=== PATIENT | female | born 1990 | race African-American/Black ===

== ENCOUNTER 2019-08-06 07:23 | Emergency (ER) | payer OTHER, SELFPAY ==
[2019-08-06] MEDS ORDERED: Ondansetron ODT 4 MG TAB ONE (07:50)
[2019-08-06 08:01] LABS: #Basophils 0.1 thou/uL (0.0-0.2); #Lymphocytes 1.9 thou/uL (1.20-3.40); #Monocytes 0.6 thou/uL (0.11-0.59); #Neutrophils 4.3 thou/uL (1.40-6.50); %Eosinophils 0.2 % (0.0-10.0); %Lymphocytes 27.6 % (21.0-51.0); %Monocytes 9.3 % (0.0-10.0); %Neutrophils 61.9 % (42.0-75.0); Hemoglobin 13.9 g/dL (12.0-16.0); Mean Corpuscular HGB CONC 33.5 g/dL (32.0-36.0); Mean Corpuscular Hemoglobin 30.3 pg (27.0-31.0); Mean Corpuscular Volume 90.4 fL (78.0-98.0); Mean Platelet Volume 6.9 fL (7.4-10.4); Platelet Count 292 thou/uL (130-400); Red Blood Cell (RBC) Count 4.59 mill/uL (4.20-5.40); White Blood Cell (WBC) Count 6.9 thou/uL (4.8-10.8)
[2019-08-06 08:20] LABS: Bilirubin Negative (Negative); Blood, Urine Negative (Negative); Clarity Turbid (Clear); Glucose, Urine (Dipstick) Normal (Negative); Leukocyte 25 Leu/uL (Negative); Mucous/LPF 2+ LPF (<2+); Nitrite Negative (Negative); Protein, Urine (Dipstick) 70 mg/dL (Neg-Trace); Urobilinogen 3 mg/dL (Less than 2)
[2019-08-06 08:24] LABS: ALT (SGPT) 16 U/L (8-55); AST (SGOT) 18 U/L (5-34); Albumin 4.7 g/dL (3.5-5.0); Alkaline Phosphatase 38 U/L (40-150); Anion Gap 13 mmol/L (10-20); BUN (Urea Nitrogen) 9 mg/dL (7.0-18.7); Bilirubin, Total 0.5 mg/dL (0.2-1.2); Calc. Creatinine Clearance 0 mL/min (70-130); Calcium 10.2 mg/dL (7.8-10.44); Carbon Dioxide 23 mmol/L (22-29); Chloride 102 mmol/L (98-107); Estimated GFR-MDRD Greater than 90; Glucose 86 mg/dL (70-105); Potassium 3.6 mmol/L (3.5-5.1); Protein, Total 7.7 g/dL (6.0-8.3); Sodium 134 mmol/L (136-145)
[2019-08-06 08:34] LABS: Bacteria/HPF 3+ HPF (None Seen); RBC/HPF 0-3 HPF (0-3)
--- NOTE | 2019-08-06 09:38 | ULT ---
EXAM: US Pelvic W Doppler PROVIDED CLINICAL HISTORY: Pelvic pain COMPARISON: None FINDINGS: Single live intrauterine gestation is documented, with crown-rump length corresponding to 7 week 1 da y gestation. Heart rate of 149 bpm documented. Small amount of perigestational hemorrhage. The uterus appears otherwise unremarkable. The ovaries appear sonographically normal. Color Doppler and s pectral analysis of the ovarian waveforms and straits normal flow bilaterally. No significant free pelvic fluid evident. IMPRESSION: Single live intrauterine gestation as above.
== END 2019-08-06 10:17 | disposition home or self-care (01) ==
LOC: ERS 07:23
DX: O21.9 Vomiting of pregnancy, unspecified (principal); O99.89 Other specified diseases and conditions complicating pregnancy, childbirth and the puerperium; R82.71 Bacteriuria; Z3A.01 Less than 8 weeks gestation of pregnancy
CPT/HCPCS: 36415; 76856; 80053; 81003; 81015; 84702; 85025; 87077; 87086; 87186; 93976; Q0162

== ENCOUNTER 2019-11-07 09:35 | Outpatient (CLI) | payer OTHER ==
--- NOTE | 2019-11-07 11:21 | ULT ---
OB ULTRASOUND: HISTORY: anatomy. FINDINGS: A single live intrauterine gestation is seen with measurements corresponding to an estimated gestatio nal age of 20 weeks 0 days and an JORGE of 03/26/2020. The estimated weight measures 340 g or 12 oz (58th percentile by Hadlock criteria). measurements are as follows: BPD: 4.38 cm (19 weeks 2 days) HC: 17.27 cm (19 weeks 6 days) AC: 15.34 cm (20 weeks 4 days) FL: 3.22 cm (20 weeks 1 day) heart rate measures 153 beats per minute. VARGAS measures 9.26 cm. Placenta is posteriorly located without evidence of placenta previa. Cervical length measures 4.4 cm. Three vessel cord, cord insertion, kidneys, bladder, stomach, four chambered heart, lateral kely tricles, cerebellum, spine, and upper and lower extremities are visualized without definite ano malies. The lips/nose are not well seen. IMPRESSION: Single live intrauterine of 20 weeks 0 days estimated gestational age and an estimated date of delivery of 03/26/2020. POS: CHHAYA
== END 2019-11-07 09:36 | disposition home or self-care (01) ==
LOC: BICULT 09:35
PROVIDERS: ATTEND Family Medicine
DX: Z34.82 Encounter for supervision of other normal pregnancy, second trimester (principal); Z3A.20 20 weeks gestation of pregnancy
CPT/HCPCS: 76805

== ENCOUNTER 2020-03-16 09:43 | Inpatient (IN) | payer OTHER ==
[2020-03-16 10:26] VITALS: BMI 35.4
[2020-03-16] MEDS ORDERED: NS / Oxytocin 40 units/1000ml 1,000 ML IV PRN (10:32)
[2020-03-16] MEDS ORDERED: Ibuprofen 800 MG TAB PO PRN (10:32)
[2020-03-16] MEDS ORDERED: Acetaminophen 500 MG TAB PO PRN (10:32)
[2020-03-16] MEDS ORDERED: Lidocaine 1% (PF) 30 ML VIAL SC PRN (10:32)
[2020-03-16] MEDS ORDERED: Ondansetron PF 4 MG/2 ML Vial IVP PRN ×3 (10:32→20:12)
[2020-03-16] MEDS ORDERED: Butorphanol Tartrate 1 MG/ML VIAL SLOW IVP PRN (10:32)
[2020-03-16] MEDS ORDERED: hydrALAZINE 20 MG/ML VIAL SLOW IVP PRN ×2 (10:32→20:12)
[2020-03-16] MEDS ORDERED: Promethazine HCl 25 MG/ML VIAL IM PRN ×3 (10:32→20:12)
[2020-03-16] MEDS ORDERED: Penicillin G Potassium 5 MILL.UNITS in Sodium Chloride 0.9% 100 ML IVPB SCH (10:45)
--- NOTE | 2020-03-16 10:54 | PDOC.FPROB ---
FMR OB H&P: HPI - History of Present Illness Chief Complaint: Contractions Indentification: 29 year old at 38.4 wks History of Present Illness: 29 year old at 38.4 wks presents with q5 minute contractions since 5:00 AM. She states they started to get stronger at approximately 9:30 AM. Patient denies any complications in this . She is GBS positive. Patient was checked in clinic last week and was 3 cm dilated. Patient denies vaginal bleeding, vaginal discharge, LoF. Endorses good movement. Primary Care Physician: Dr. Patel FMR OB H&P: Current - Care : 3 Para: 2001 Gestational age: 38.4 wks Due date: 03/26/2020 FMR OB H&P: History - Past Medical History PMH: Denies - OB History OB History: 3 's - HEMODIALYSIS TECHNICIAN History HEMODIALYSIS TECHNICIAN History: Denies history of STD's - Surgical History Sx History: Denies - Social History Social History: Denies alcohol, tobacco, or drug use FMR OB H&P: Medications - Current Home Medications: Medication Instructions Recorded Confirmed Type Iron Carb,Gl/FA/B12/C/Docusate 1 tablet PO DAILY 03/16/20 03/16/20 History [Ferralet 90] Vitamin 1 tablet PO DAILY 03/16/20 03/16/20 History Allergies/Adverse Reactions: Allergies Allergy/AdvReac Type Severity Reaction Status Date / Time No Known Allergies Allergy Unverified 03/16/20 10:18 FMR OB H&P: ROS - Review of Systems General: denies: fever/chills, weight/appetite/sleep changes Eyes: denies: vision changes, scotomas ENT: denies: nasal congestion, rhinorrhea, sore throat Cardiovascular: denies: chest pain, palpitation, edema Respiratory: denies: cough, congestion, shortness of breath Gastrointestinal: denies: abdominal pain, nausea, vomiting, diarrhea Genitourinary (Female): reports: contractions, vaginal pressure. denies: dysuria, vaginal pain, vaginal bleeding Musculoskeletal: denies: pain, stiffness, tenderness Neurologic: denies: numbness, syncope, weakness Integumentary: denies: itching, rash Hematologic/Lymphatic: denies: prolonged or excessive bleeding Psychological: denies: depression, anxiety FMR OB H&P: Vital Signs - Maternal Vital signs: BP 133/79 Pulse 93 Afebrile - Heart Tones Baseline: 140 Variability: moderate Acceleration: present Deceleration: absent Category: category 1 [place] contractions every: q3-6 min FMR OB H&P: Physical Exam - Physical Exam General: NAD, awake, alert and oriented HEENT: grossly normal vision, grossly normal hearing Heart: RRR, pulses present General: no respiratory distress Abdomen: soft, gravid, non-tender Musculoskeletal: pulses present, FROM in all four extremities Neurological: no tremor, no focal deficit Skin: no rash, capillary refill <2 seconds Lymphatic: no unusual bruising or bleeding Psychiatric: intact recent and remote memory, good judgement and insight, normal mood and affect - Pelvic Exam SVE: 5/ Presentation: Cephalic FMR OB H&P: A/P - Problem List (1) Term Current Visit: Yes Status: Acute Code(s): Z34.90 - ENCNTR FOR SUPRVSN OF NORMAL , UNSP, UNSP TRIMESTER Disposition: 29 year old at 38.4 wks Term - In labor - SVE: /-3 - GBS positive, initiating GBS ppx with Penicillin - Cat I strip Dispo: Admit to L&D for expectant management. Discussion: Date/Time: 03/16/20 1039 This H&P was discussed with Dr. Patel who agrees with the above documentation and plan. Signature: Fabienne Mac, DO PGY-3
[2020-03-16] MEDS: Lactated Ringer's 1,000 ML IV SCH ×2 (11:07→13:21)
[2020-03-16 11:17] LABS: Hemoglobin 12.5 g/dL (12.0-16.0); Mean Corpuscular HGB CONC 34.3 g/dL (32.0-36.0); Mean Corpuscular Hemoglobin 32.4 pg (27.0-31.0); Mean Corpuscular Volume 94.3 fL (78.0-98.0); Mean Platelet Volume 7.6 fL (7.4-10.4); Platelet Count 262 thou/uL (130-400); Red Blood Cell (RBC) Count 3.85 mill/uL (4.20-5.40); White Blood Cell (WBC) Count 11.8 thou/uL (4.8-10.8)
[2020-03-16 11:51] LABS: HBSAg Index 0.21 S/CO (0-0.99); Hep B Surf Ag Non-Reactive S/CO (NonReactive); Syphilis Antibody Nonreactive (Nonreactive); Syphilis Antibody Index 0.04 S/CO (<1.00 Non-Reactive)
[2020-03-16] MEDS ORDERED: Fentanyl 4 mcg/Bup 0.1% Cadd 100 ML ONE (12:35)
[2020-03-16] MEDS ORDERED: diphenhydrAMINE 50 MG/ML VIAL IVP PRN (13:24)
[2020-03-16] MEDS ORDERED: Lactated Ringer's 500 ML IV PRN (13:24)
[2020-03-16] MEDS ORDERED: EPHEDRINE 25 MG/5 ML SYRINGE SLOW IVP PRN (13:24)
[2020-03-16] MEDS ORDERED: Acetaminophen 325 MG TAB PO PRN (13:24)
[2020-03-16] MEDS ORDERED: Bupivacaine/Epinephrine 0.25% 30 ML VIAL ONE (13:24)
[2020-03-16] MEDS ORDERED: Naloxone HCl 0.4 mg/ml Vial IVP PRN ×2 (13:24)
[2020-03-16] MEDS ORDERED: EPHEDRINE 25 MG/5 ML SYRINGE ONE (13:24)
[2020-03-16] MEDS ORDERED: Communication Order-Pharmacy FS SCH (13:30)
[2020-03-16] MEDS ORDERED: Fentanyl 4 mcg/Bupivacaine 0.1% Cassette 100 ML EPIDURAL SCH (13:30)
[2020-03-16] MEDS ORDERED: NS w/ Oxytocin 10 units 500 ML ONE (14:03)
[2020-03-16] MEDS ORDERED: Oxytocin 10 UNITS/ML VIAL ONE (14:03)
[2020-03-16] MEDS: Penicillin G 2.5 MILL.units 2.5 MILL.UNITS in Premix Bag 1 BAG IVPB SCH ×2 (15:37→19:39)
[2020-03-16] MEDS ORDERED: Bisacodyl 10 MG SUPP PR PRN (20:12)
[2020-03-16] MEDS ORDERED: diphenhydrAMINE 25 MG CAP PO PRN (20:12)
[2020-03-16] MEDS ORDERED: Lanolin Ointment 7 GM TUBE TOP PRN (20:12)
[2020-03-16] MEDS ORDERED: NS / Oxytocin 40 units/1000ml 1,000 ML IV SCH (20:12)
[2020-03-16] MEDS ORDERED: Benzocaine-Menthol 82.5 ML CAN TOP PRN (20:12)
[2020-03-16] MEDS ORDERED: Milk Of Magnesia 30 ML UDCUP PO PRN (20:12)
[2020-03-16] MEDS ORDERED: HYDROcodone/Acetaminophen 5/325 mg Tablet PO PRN (20:12)
[2020-03-16] MEDS: Ibuprofen 800 MG TAB PO SCH (20:50)
[2020-03-17] MEDS: Docusate Calcium (SURFAK) 240 MG CAP PO SCH ×2 (04:53→08:28)
[2020-03-17] MEDS: Ibuprofen 800 MG TAB PO SCH ×2 (04:54→13:46)
[2020-03-17] MEDS: HYDROcodone/Acetaminophen 5/325 mg Tablet PO PRN ×2 (08:24→18:35)
[2020-03-17] MEDS: Ferrous Sulfate 325 MG TAB PO SCH ×2 (08:29→18:39)
[2020-03-17] MEDS ORDERED: Prenatal Vitamin 1 TAB PO SCH (09:00)
[2020-03-17] MEDS ORDERED: Adacel (T-DAP) 0.5 ML SYRINGE IM ONE (09:00)
[2020-03-17 09:52] LABS: Hemoglobin 10.4 g/dL (12.0-16.0); Mean Corpuscular HGB CONC 33.6 g/dL (32.0-36.0); Mean Corpuscular Hemoglobin 31.9 pg (27.0-31.0); Mean Platelet Volume 7.3 fL (7.4-10.4); Platelet Count 208 thou/uL (130-400); RBC Distribution Width 12.7 % (11.5-14.5); Red Blood Cell (RBC) Count 3.28 mill/uL (4.20-5.40); White Blood Cell (WBC) Count 14.6 thou/uL (4.8-10.8)
[2020-03-17 13:25] VITALS: BP 135/68; TEMP 98.2
== END 2020-03-17 20:25 | disposition home or self-care (01) | DRG 807 ==
LOC: L&D/OP 09:43 → L&D 11:11 → 3SE 21:41
PROVIDERS: ADMIT Family Medicine; ATTEND Family Medicine
PROC: 10E0XZZ Delivery of Products of Conception, External Approach (ICD-10-PCS; principal; 2020-03-16)
DX: O99.824 Streptococcus B carrier state complicating childbirth (principal); Z37.0 Single live birth; Z3A.38 38 weeks gestation of pregnancy
CPT/HCPCS: 36415; 51702; 85027; 86780; 86850; 86900; 86901; 87340; 99285; J0595; J2405; J2540; J2590; J3490